=== PATIENT | male | born 1960 | race Caucasian/White ===

== ENCOUNTER 2016-06-21 20:15 | Emergency (ER) | payer BC, OTHER ==
[2016-06-21] MEDS ORDERED: HYDROCODONE/ACETAMINOPHEN 5-325 MG TABLET PO ONE (20:31)
--- NOTE | 2016-06-21 20:31 | ER Document Report ---
ED Medical Screen (RME) - General Stated Complaint: FALL SHOULDER PAIN Time seen by provider: 20:29 Mode of Arrival: Ambulatory Information source: Patient - HPI Patient complains to provider of: RIGHT SHOULER AND LOWER BACK PAIN Onset: This evening Onset/Duration: Sudden Context: TRIPPED AND FELL ON RIGHT SHOULDER, LOWER BACK HURTS WELL. Quality of pain: Throbbing Severity: Moderate Pain Level: 3 Associated Symptoms: None Exacerbated by: Movement Relieved by: Remaining still Similar symptoms previously: Yes Recently seen / treated by doctor: No - Related Data Smoking: Quit less than 1 year Frequency of alcohol use: None Drug Abuse: None
--- NOTE | 2016-06-21 22:25 | ER Document Report ---
ED General - General Chief Complaint: Shoulder Pain Stated Complaint: FALL SHOULDER PAIN Mode of Arrival: Ambulatory Notes: Patient is a 55-year-old male who presents with right shoulder pain after he slipped and fell walking in the dark and landing directly onto his right shoulder. He did not sustain any additional injuries. He does have the pain is a constant dull, throbbing pain. He has not tried anything to improve the pain. States it tends arranging the shoulder worsens the pain. He has not had a similar injury in the past. He has not seen his primary care physician regarding today's concerns. He denies any associated weakness or numbness. - Related Data Allergies/Adverse Reactions: No Known Allergies Allergy (Unverified 06/21/16 20:31) Past Medical History - General Information source: Patient - Social History Smoking Status: Former Smoker Frequency of alcohol use: None Drug Abuse: None Lives with: Spouse/Significant other Family History: Reviewed & Not Pertinent Patient has suicidal ideation: No Patient has homicidal ideation: No Renal/ Medical History: Denies: Hx Peritoneal Dialysis Review of Systems - Review of Systems Notes: Constitutional: Negative for fever. Eyes: Negative for visual changes. ENT: Negative for facial injury Cardiovascular: Negative for chest injury. Respiratory: Negative for shortness of breath. Gastrointestinal: Negative for abdominal injury. Genitourinary: Negative for genital injury Musculoskeletal: Negative for back injury. Positive for right shoulder injury Skin: Negative for laceration/abrasions. Neurological: Negative for head injury. Physical Exam - Vital signs Vitals: Temp Pulse Resp BP Pulse Ox 98.2 F 97 18 133/83 H 94 06/21/16 20:19 06/21/16 20:19 06/21/16 20:19 06/21/16 20:19 06/21/16 20:19 Interpretation: Normal Notes: PHYSICAL EXAMINATION: GENERAL: Well-appearing, well-nourished and in no acute distress. HEAD: Atraumatic, normocephalic. EYES: sclera anicteric, conjunctiva are normal. ENT: Moist mucous membranes. NECK: Normal range of motion LUNGS: Normal work of breathing HEART: 2+ radial pulses bilaterally EXTREMITIES: no pitting or edema. No cyanosis. Unable to abduct the shoulder past 90 on the right. No deformity. Pain on palpation of the deltoid and trapezius NEUROLOGICAL: No focal neurological deficits. Moves all extremities spontaneously and on command. PSYCH: Normal mood, normal affect. SKIN: Warm, Dry, normal turgor, no rashes or lesions noted. Course - Re-evaluation Re-evalutation: 06/21/16 22:24 No evidence of a septic joint, gout flare, dislocation, or fracture on exam and imaging. Suspect soft tissue injury in the setting of a direct trauma due to mechanical fall. Vitals wnl. At this time, I do not see an indication for labs or further imaging. At this time will discharge with return precautions and follow-up recommendations. Verbal discharge instructions given a the bedside and opportunity for questions given. Medication warnings reviewed. Patient is in agreement with this plan and has verbalized understanding of return precautions and the need for primary care follow-up in the next 24-72 hours. - Vital Signs Vital signs: Temp Pulse Resp BP Pulse Ox 97.5 F 76 18 131/76 H 91 L 06/21/16 22:38 06/21/16 22:38 06/21/16 22:38 06/21/16 22:38 06/21/16 22:38 - Diagnostic Test Radiology reviewed: Image reviewed, Reports reviewed Radiology results interpreted by me: 06/22/16 03:05 Right shoulder: No acute fracture or dislocation Discharge - Discharge Clinical Impression: Right shoulder injury Qualifiers: Encounter type: initial encounter Qualified Code(s): S49.91XA - Unspecified injury of right shoulder and upper arm, initial encounter Condition: Good Disposition: HOME, SELF-CARE Additional Instructions: Your x-ray does not show any acute fracture today. You likely have a ligamentous strain. You should continue to take anti-inflammatories such as ibuprofen 600 mg every 6 hours. Apply heat or ice to the area whichever provides more comfort as often as you are able. Please follow-up with your primary care physician if you do not have improving your symptoms in the next 1- 2 weeks. Please return immediately if you develop weakness, numbness, spreading redness from the area, or any other symptoms that are concerning to you.
[2016-06-21 22:49] VITALS: BP 131/76
== END 2016-06-21 22:49 | disposition home or self-care (01) ==
LOC: ER 20:15
DX: S49.91XA Unspecified injury of right shoulder and upper arm, initial encounter (principal); M25.511 Pain in right shoulder; W01.0XXA Fall on same level from slipping, tripping and stumbling without subsequent striking against object, initial encounter; Z87.891 Personal history of nicotine dependence
CPT/HCPCS: 99283